=== PATIENT | female | born 2005 | race African-American/Black ===

== ENCOUNTER 2023-04-01 10:07 | Emergency (ER) | payer OTHER | END 2023-04-01 10:30 | disposition home or self-care (01) | LOC: CSHERS 10:07 | DX: M79.10 Myalgia, unspecified site (principal); G44.209 Tension-type headache, unspecified, not intractable; V49.9XXA Car occupant (driver) (passenger) injured in unspecified traffic accident, initial encounter | CPT/HCPCS: 99283 ==